=== PATIENT | male | born 1990 | race Caucasian/White ===

== ENCOUNTER 2018-03-08 06:04 | Emergency (ER) | payer MEDICAID ==
[~2018-03-08] VITALS: Ht 177.8 cm; Wt 68.0 kg
[2018-03-08 06:07] VITALS: BP_SYST 151
[2018-03-08 06:30] VITALS: BP_SYST 151
== END 2018-03-08 06:30 ==
LOC: SED 06:04
DX: S00.81XA Abrasion of other part of head, initial encounter (principal); S90.414A Abrasion, right lesser toe(s), initial encounter; X58.XXXA Exposure to other specified factors, initial encounter; Y93.89 Activity, other specified; Y92.89 Other specified places as the place of occurrence of the external cause; Y99.8 Other external cause status
CPT/HCPCS: 99283

== ENCOUNTER 2019-04-20 02:54 | Emergency (ER) | payer MEDICAID ==
[~2019-04-20] VITALS: Ht 177.8 cm; Wt 77.1 kg
[2019-04-20 03:07] VITALS: BP_SYST 119
[2019-04-20 04:01] VITALS: BP_SYST 119
== END 2019-04-20 04:00 | disposition home or self-care (01) ==
LOC: SED 02:54
DX: Z47.89 Encounter for other orthopedic aftercare (principal)
CPT/HCPCS: 99281

== ENCOUNTER 2019-05-30 11:35 | Emergency (ER) | payer MEDICAID ==
[~2019-05-30] VITALS: Ht 177.8 cm; Wt 79.4 kg
--- NOTE | 2019-05-30 11:36 | NUR ---
Patient to ER bed H1 to gown for evaluation. Side rails up.
[2019-05-30 11:37] VITALS: BP_SYST 123
--- NOTE | 2019-05-30 11:38 | NUR ---
Pt brought by global safety officer, [email or web address], pt presents to ER for medical clearance, pt has a previous injury on R wrist, denies pain today, skin pink and warm, cap refill <3, no accidents or new injuries noted.
--- NOTE | 2019-05-30 11:42 | NUR ---
Dr Jo at bedside examining patient
[2019-05-30 11:59] VITALS: BP_SYST 122
--- NOTE | 2019-05-30 11:59 | NUR ---
Patient given written and verbal discharge instructions and verbalizes understanding. ER MD discussed with patient the results and treatment provided. Patient in stable condition. ID arm band removed. No Rx given. Patient educated on pain management and to follow up with PMD. Pain Scale 2/10 tolerable for patient. Opportunity for questions provided and answered. Medication side effect fact sheet provided.
== END 2019-05-30 11:59 ==
LOC: SED 11:35
DX: Z02.89 Encounter for other administrative examinations (principal)
CPT/HCPCS: 99283